=== PATIENT | male | born 1995 | race Caucasian/White ===

== ENCOUNTER → 2017-01-08 | Outpatient (CLI) | payer OTHER ==
[2017-01-08 09:51] LABS: CHOL/HDL RATIO 3.68 RATIO (0-4.0); SERUM ALBUMIN 4.3 g/dL (3.5-4.8)
== END ==
LOC: LAB 08:50
PROVIDERS: ATTEND Student in an Organized Health Care Education/Training Program
DX: L70.0 Acne vulgaris (principal)
CPT/HCPCS: 36415; 80061; 80076

== ENCOUNTER → 2017-03-14 | Outpatient (CLI) | payer OTHER ==
[2017-03-14 12:51] LABS: CHOL/HDL RATIO 3.8 RATIO (0-4.0); LDL CHOLESTEROL,CALCULATED 73.4 mg/dL; SERUM ALBUMIN 4.6 g/dL (3.5-4.8)
== END ==
LOC: LAB 11:58
PROVIDERS: ATTEND Student in an Organized Health Care Education/Training Program
DX: L70.0 Acne vulgaris (principal)
CPT/HCPCS: 36415; 80061; 80076